=== PATIENT | female | born 1960 | race Caucasian/White ===

== ENCOUNTER 2018-03-15 10:12 | Emergency (ER) | payer OTHER ==
[~2018-03-15] VITALS: Ht 157.5 cm; Wt 54.4 kg
[2018-03-15] MEDS ORDERED: GLUCOPHAGE XR500 MG (10:42)
[2018-03-15] MEDS ORDERED: SYNTHROID50 MCG (10:43)
[2018-03-15] MEDS ORDERED: LIPITOR40 MG (10:43)
[2018-03-15] MEDS ORDERED: AMITRIPTYLINE H10 MG (10:43)
== END 2018-03-15 11:51 | disposition home or self-care (01) ==
LOC: ER 10:12
DX: R30.0 Dysuria (principal); R31.0 Gross hematuria; N39.0 Urinary tract infection, site not specified